=== PATIENT | male | born 1995 | race Hispanic/Latino ===

== ENCOUNTER 2018-08-20 22:55 | Emergency (ER) | payer SELFPAY ==
[2018-08-20] MEDS ORDERED: Dexamethasone 10 MG/ML VIAL ONE (23:32)
== END 2018-08-21 00:52 | disposition home or self-care (01) ==
LOC: ERS 22:55
DX: J02.9 Acute pharyngitis, unspecified (principal)
CPT/HCPCS: 87081; 87430; 96372; J1100

== ENCOUNTER 2023-06-06 22:04 | Emergency (ER) | payer SELFPAY ==
[2023-06-07] MEDS ORDERED: Acetaminophen 500 MG TAB ONE (00:40)
== END 2023-06-07 00:46 | disposition home or self-care (01) ==
LOC: ERS 22:04
DX: S60.011A Contusion of right thumb without damage to nail, initial encounter (principal); W23.0XXA Caught, crushed, jammed, or pinched between moving objects, initial encounter
CPT/HCPCS: 11740